=== PATIENT | male | born 1940 | race Caucasian/White ===

== ENCOUNTER → 2017-11-19 13:49 | Outpatient (CLI) | payer MEDICARE, OTHER, SELFPAY | PROVIDERS: Family Provider Family Medicine; PCP Family Medicine | DX: M76.822 Posterior tibial tendinitis, left leg (principal); S96.811A Strain of other specified muscles and tendons at ankle and foot level, right foot, initial encounter | CPT/HCPCS: 73610 ==

== ENCOUNTER 2018-08-21 06:53 | Emergency (ER) | payer MEDICARE, OTHER, SELFPAY ==
[2018-08-21 06:54] VITALS: BP 184/80; PULSE 52; RESP 16; TEMP 36.6; O2SAT 94; BMI 24.8
--- NOTE | 2018-08-21 07:15 | ED.VIS.GEN ---
History of Present Illness Chief Complaint: Back Informant: Patient Onset: Days - Onset Friday Context: Sudden Onset Timing: Continuous Quality: Discomfort Location: Right lower back Current Severity: - - None Maximum Severity: Moderate - With initiation of gait right lower extremity and certain positions Worsened by: Initiation of gait and rising from squatted position Relieved by: Rest Associated Symptoms: Pain/grabbing sensation posterior right thigh Narrative: Patient is a 78-year-old male who is very active for age. He states pain started Friday driving back from [place]. Of note he was at a running event. He also was chopping trees and removing roots from the ground. He denies bowel bladder dysfunction. He does have weakness and unable to rise on his toes right side. This is a chronic issue for approximately 5 years. He states he has narrowing with compression of the L5-S1 nerve root. He denies bowel bladder dysfunction. He denies quadricep weakness. Matter fact, patient has done nothing for the discomfort. Patient has taken nothing for it. He was able to do a squat to demonstrate what makes his pain worse.He was informed that muscle relaxants are not indicated and are on the [facility] list. He was able to do a squat to demonstrate what makes his pain worse. Prior similar symptoms: Yes Recent Illness/Hospitalization: No - Past Medical History (1) Chronic back pain greater than 3 months duration Status: Chronic Past Medical History - Allergies and Home Meds Allergies/Adverse Reactions: Allergies Penicillins Adverse Reaction (Verified 08/21/18 06:57) Itching Sulfa (Sulfonamide Antibiotics) Adverse Reaction (Verified 08/21/18 06:57) Itching Primary Care Physician: Lincoln Araya MD [Primary Care Provider] - Prior records reviewed: No Past Medical History: None Surgical History: noncontributory Lives: Spouse/ Significant Other Smoking Status: Never smoker Alcohol: None Drugs: None Review of Systems General: Denies: Chills, Fever, Malaise, Sweats Eyes: Denies: Visual changes - bilaterally, Blurred Vision - bilaterally, Diplopia Respiratory: Denies: Dyspnea Gastrointestinal: Denies: Abdominal pain, Nausea, Vomiting, Diarrhea Genitourinary: Denies: Dysuria, Hematuria, Frequency Musculoskeletal: Reports: Extremity Pain. Denies: Myalgias, Arthralgias, Neck pain, Back pain, Swelling Skin: Denies: Rash, Abrasions Neurological: Reports: Weakness. Denies: Parasthesia, Numbness Allergy: Denies: Uticaria, Swelling of the mouth Physical Exam Vital Signs/Narrative: Vital Signs Temp Pulse Resp BP Pulse Ox 08/21/18 06:54 97.9 F 52 L 16 184/80 H 94 Inital Vital Signs reviewed: Yes General: Well nourished, Well developed, No Acute Distress Head: Normocephalic, Atraumatic Eyes: Perrl, EOMI. Negative for: Pale conjunctiva, Scleral icterus Cardiovascular: Regular rate, Regular rhythm, No murmurs, Normal S1, Normal S2 Respiratory: No distress, CTA bilaterally, Chest nontender Abdomen: Soft, Nontender, Nondistended, Normal bowel sounds. Negative for: No masses Back: Nontender, Normal Inspection Extremities: Nontender, No edema, - - Straight leg test and crossover tests are negative. DP and PT pulse are 2+ and symmetric. Skin: Normal color, No rash, No Trauma Neurological: Alert, Oriented x3, Cranial nerves II-XII grossly intact, Normal Sensation, Normal DTR - Patella and ankle reflex are 1+ and symmetric. No Babinski sign and no clonus., - - Unable to raise on toes right side. This is a chronic issue. EHLs week. He denies altered sensation however. He is able to squat. He has no altered sensation on the plantar surface of his feet, lateral or medial aspect of his feet.. Negative for: Normal Gait Diagnostic/Tx/Re-eval - Medical Decision Making Based on patient's history and examination he has muscle pain. Jean Popeye for test elicits pain in the sacral area. Patient was informed ice, rest and was prescribed oral analgesics. He has no contraindication to NSAIDs. Based on exam doubt herniated disc. He does have chronic issue regarding L5 nerve root. ED Disposition - Plan for ED Patient: Disposition: Home or Assisted Living Diagnosis: Acute right-sided low back pain without sciatica Instructions: ED Sprain Strain Lumbar Prescriptions: Hydrocodone Bitart/Apap 5-325 [[place] 5MG-325MG] 1 tablet PO Q6H PRN PRN 3 Days #10 tablet PRN Reason: Pain Naproxen [Naprosyn] 500 mg PO BID #14 tablet Referrals: Lincoln Araya MD [Primary Care Provider] - As Needed Additional Instructions: Your prescriptions were electronically transmitted to [facility] pharmacy located in [place].
[2018-08-21] MEDS: Naproxen 250 MG Tablet 500 MG PO (07:32)
[2018-08-21] MEDS: HYDROcodone Bitartrate/Apap 5/325 Tablet PO (07:32)
== END 2018-08-21 07:36 | disposition home or self-care (01) ==
PROVIDERS: Emergency Provider Emergency Medicine; Family Provider Family Medicine; PCP Family Medicine
DX: M54.5 Low back pain (principal); R53.1 Weakness; G89.29 Other chronic pain
CPT/HCPCS: 99283

== ENCOUNTER 2019-09-25 19:53 | Emergency (ER) | payer MEDICARE, OTHER, SELFPAY ==
[2019-09-25 19:54] VITALS: BP 149/77; PULSE 78; RESP 16; TEMP 36.9; O2SAT 98; BMI 24.7
[2019-09-25 20:03] VITALS: BP 149/77; PULSE 78; RESP 16; TEMP 36.9; O2SAT 98
[2019-09-25 20:26] LABS: Bacteria 0 SEEN /hpf (None Seen); Mucous, Urine 0 SEEN /hpf (<or=2+); Red Blood Cells-Urine 0 SEEN /hpf (0-5); Squamous Epithelial Cells - UA 0 SEEN /hpf (0-5); White Blood Cells 0 SEEN /hpf (0-5)
[2019-09-25 20:30] LABS: Color, Urine Yellow (Yellow); Glucose, Dipstick Normal (Normal); Ketone-Dipstick Negative (Negative); Leukocyte Esterase-Dipstick Negative /ul (Negative); Nitrite-Dipstick Negative (Negative); Occult Blood-Urine Negative /ul (Negative); Protein-Dipstick Negative (Negative); Specific Gravity, Urine 1.015 (1.002-1.030); Urine Bilirubin Dipstick Negative (Negative); Urine Clarity Clear (Clear); Urine Urobilinogen Normal (Normal)
--- NOTE | 2019-09-25 20:51 | ED.VISSUMM ---
- ER Visit Summary Date of Service: 09/25/19 Chief Complaint: [Dysuria] History of Present Illness: The patient is a 79 M [to the emergency department with complaint of dysuria and a hard time starting his stream that been going on for couple weeks. Patient states that he had surgery on his back 2 weeks ago at L3-4-5 fusion. Incontinence. He denies any fever. He denies nausea or vomiting. Patient just feels like he does not have a strong stream but once he starts to urinate he is able to completely void.] Physical Examination: [HEENT-PERRLA, EOMI. Cranial nerves II through XII grossly intact. TMs clear. Mucous membranes moist. No adenopathy. Cardiovascular-regular rate and rhythm without murmur or ectopy Lungs-clear to auscultation, chest wall stable without crepitus or subcu emphysema Abdomen-normoactive bowel sounds, soft, nontender, no rebound or rigidity, no peritoneal signs. Extremities-intact ?4, normal range of motion, normal pulses, atraumatic] Test Results: [Bladder scan obtained showed minimal urine within the bladder. Urinalysis obtained was normal.] Emergency Department Course and Treatment: [Patient discussed with urology on-call who recommended Flomax and outpatient follow-up with them.] Treatment Plan: [Will be started on Flomax and given referral to urology for follow-up] Disposition: [Discharged home in stable condition] Impression: [Dysuria ] This note was generated with [employer] dictation software. It may contain incorrect words, spelling, and punctuation that were not noted in review of the chart prior to signing ED Disposition - Plan for ED Patient: Referrals: Lincoln Araya MD [Primary Care Provider] -
--- NOTE | 2019-09-25 20:53 | ED.DEP ---
ED Disposition - Plan for ED Patient: Instructions: ED Dysuria Uncertain Cause Prescriptions: Tamsulosin HCl [Flomax] 0.4 mg PO DAILY #20 cap Prescription Printed Referrals: Lincoln Araya MD [Primary Care Provider] - Royal Richards MD [STAFF PHYSICIAN] - 3-5 Days
[2019-09-25] MEDS: Tamsulosin HCl 0.4 MG Capsule PO (21:09)
[2019-09-25 21:15] VITALS: RESP 16
--- NOTE | 2019-09-25 21:15 | ED.RN ---
REVIEWED D/C INSTRUCTIONS, FOLLOW UP CARE, PRESCRIPTION, AND S/S THAT WOULD WARRANT A RETURN TO THE ED WITH PT. PT VERBALIZED AN UNDERSTANDING AND DENIES FURTHER QUESTIONS FOR THIS RN. PT SKIN P/W/D, RESP EVEN AND UNLABORED, PT A&O X 3, NO DISTRESS NOTED. PT AMBULATED OUT OF ED, GAIT STEADY.
== END 2019-09-25 21:28 | disposition home or self-care (01) ==
PROVIDERS: Emergency Provider Emergency Medicine; PCP Family Medicine
DX: R30.0 Dysuria (principal); Z98.1 Arthrodesis status; Z79.899 Other long term (current) drug therapy
CPT/HCPCS: 81001; 99283

== ENCOUNTER 2021-02-10 09:57 | Outpatient (CLI) | payer MEDICARE, OTHER, SELFPAY ==
[2021-02-10] MEDS: 0.9% Saline Lock 10 ML Syringe IV (10:13)
[2021-02-10 10:16] VITALS: BP 153/72; PULSE 57; RESP 16; TEMP 36.9; O2SAT 98; BMI 23.6
[2021-02-10 12:08] VITALS: BP 137/49; PULSE 51; RESP 16; TEMP 37.3; O2SAT 100
== END 2021-02-10 12:10 | disposition home or self-care (01) ==
LOC: MS3OUT 09:57 → MS3 09:58
PROVIDERS: PCP Family Medicine; Referring Provider Nurse Practitioner Adult Health; Visit Provider Nurse Practitioner Adult Health
DX: Z23 Encounter for immunization (principal); U07.1 COVID-19
CPT/HCPCS: J7050; M0245; Q0245; A4216